=== PATIENT | female | born 1955 | race Hispanic/Latino ===

== ENCOUNTER 2016-11-29 10:59 | Emergency (ER) | payer SELFPAY ==
[2016-11-29 11:21] VITALS: BP 163/79
[2016-11-29] MEDS ORDERED: EAR WAX DROPS AU ONE (11:29)
--- NOTE | 2016-11-29 11:31 | Emergency Department Report ---
Chief Complaint: Earache Stated Complaint: EAR INPACKED Time Seen by Provider: 11/29/16 11:28 - HPI History of Present Illness: PT c/o L ear feeling clogged x 5 months - ROS Review of Systems: + left ear clogged and painful - Exam Vital Signs: Vital Signs 11/29/16 11:18 Temperature 97.7 F Pulse Rate 63 Respiratory 16 Rate Blood Pressure 163/79 O2 Sat by Pulse 98 Oximetry Physical Exam: cerumen in L ear canal MSE screening note: Focused history and physical exam performed. Due to findings the following was ordered: meds ED Disposition for MSE Condition: Stable
--- NOTE | 2016-11-29 13:03 | Emergency Department Report ---
ED ENT HPI - General Chief complaint: Earache Stated complaint: EAR INPACKED Time Seen by Provider: 11/29/16 11:28 Source: patient Mode of arrival: Ambulatory Limitations: No Limitations - History of Present Illness Initial comments: Patient reports left clogged ear that started two weeks ago complaint: ear pain (left) Onset/Timin -: week(s) Location: L ear Severity: moderate Quality: aching Consistency: constant Improves with: none Worsens with: swallowing, eating Context-Epistaxis: other (none) Context- Dental: other (none) Context- Ear: other (none) Associated Symptoms: denies: fever, cough, gum swelling, toothache, pain with swallowing, sore throat, tinnitus, hearing loss, discharge from ear, rhinorrhea - Related Data Allergies Allergy/AdvReac Type Severity Reaction Status Date / Time No Known Allergies Allergy Verified 11/29/16 11:30 ED Dental HPI - General Chief complaint: Earache Stated complaint: EAR INPACKED Time Seen by Provider: 11/29/16 11:28 Source: patient Mode of arrival: Ambulatory Limitations: No Limitations - Related Data Allergies Allergy/AdvReac Type Severity Reaction Status Date / Time No Known Allergies Allergy Verified 11/29/16 11:30 ED Review of Systems ROS: Stated complaint: EAR INPACKED Other details as noted in HPI Constitutional: denies: chills, diaphoresis, fever, malaise, weakness ENT: ear pain (left). denies: throat pain, dental pain, hearing loss, epistaxis , congestion Respiratory: denies: cough, orthopnea, shortness of breath, SOB with exertion, SOB at rest, stridor, wheezing Cardiovascular: denies: chest pain, palpitations, dyspnea on exertion, orthopnea , edema, syncope, paroxysmal nocturnal dyspnea Musculoskeletal: denies: back pain, joint swelling, arthralgia Skin: denies: rash, lesions Neurological: denies: headache, weakness, numbness, paresthesias, confusion ED Past Medical Hx - Past Medical History Additional medical history: HYPOTHYROID - Surgical History Past Surgical History?: No - Social History Smoking Status: Never Smoker Substance Use Type: Alcohol ED Physical Exam - General Limitations: No Limitations General appearance: alert, in no apparent distress - Head Head exam: Present: atraumatic, normocephalic, normal inspection - Eye Eye exam: Present: normal appearance, PERRL, EOMI Pupils: Present: normal accommodation - ENT ENT exam: Present: normal orophraynx, mucous membranes moist, normal external ear exam. Absent: mucous membranes dry - Expanded ENT Exam Expanded Ear exam: Present: normal external inspection. Absent: auricular hematoma, auricular trauma TM/Canal exam: Cerumen Impaction: Left TM Mouth exam: Present: normal external inspection, tongue normal. Absent: drooling, trismus, muffled voice, tongue elevation, laceration Teeth exam: Present: normal inspection Throat exam: Positive: normal inspection. Negative: tonsillar erythema, tonsillomegaly, tonsillar exudate, R peritonsillar mass, L peritonsillar mass - Neck Neck exam: Present: normal inspection, full ROM. Absent: tenderness, meningismus - Respiratory Respiratory exam: Present: normal lung sounds bilaterally. Absent: respiratory distress, wheezes, rales, stridor - Cardiovascular Cardiovascular Exam: Present: regular rate, normal rhythm, normal heart sounds. Absent: diastolic murmur, rubs, gallop - Neurological Exam Neurological exam: Present: alert, oriented X3, CN II-XII intact, normal gait, reflexes normal. Absent: motor sensory deficit ED Course Vital Signs 11/29/16 11:18 Temperature 97.7 F Pulse Rate 63 Respiratory 16 Rate Blood Pressure 163/79 O2 Sat by Pulse 98 Oximetry ED Medical Decision Making - Lab Data Vital Signs 11/29/16 11:18 Temperature 97.7 F Pulse Rate 63 Respiratory 16 Rate Blood Pressure 163/79 O2 Sat by Pulse 98 Oximetry - Medical Decision Making During the course of ED, ear wax softener and irrigation were ordered. Patient reports resolution of left ear pain after irrigation. She was instructed to follow up with the selective referral given at discharge, she verbalized understanding - Differential Diagnosis Left Cerumen Impaction, Left Otitis Externa Critical care attestation.: If time is entered above; I have spent that time in minutes in the direct care of this critically ill patient, excluding procedure time. ED Disposition Clinical Impression: Impacted cerumen, left ear Disposition: - TO HOME OR SELFCARE Is pt being admited?: No Does the pt Need Aspirin: No Condition: Stable Instructions: Cerumen Impaction (ED) Referrals: PRIMARY CARE, [Primary Care Provider] - 3-5 Days Time of Disposition: 13:35
== END 2016-11-29 13:45 | disposition home or self-care (01) ==
LOC: ED 10:59
DX: H61.22 Impacted cerumen, left ear (principal); E03.9 Hypothyroidism, unspecified
CPT/HCPCS: 99283

== ENCOUNTER 2016-12-29 11:48 | Inpatient (IN) | payer OTHER ==
[2016-12-29] MEDS ORDERED: MORPHINE IM ONE (12:59)
[2016-12-29] MEDS ORDERED: ZOFRAN IM ONE (12:59)
--- NOTE | 2016-12-29 13:26 | XRay Report ---
Left ankle 2 views: History: Fracture. Findings: No bony or articular abnormality. No fracture or dislocation. Suspected soft tissue swelling lateral malleolus. Impression: No evidence of acute fracture.
--- NOTE | 2016-12-29 13:28 | XRay Report ---
Right and 2 views: Findings: [id number] arthritic changes noted in the interphalangeal joints second third fourth and fifth finger. Mild arthritic changes first carpometacarpal joint and interphalangeal joint. No evidence of acute fracture. Impression: No evidence of acute fracture. Incidentally noted fracture Colle's distal radius.
--- NOTE | 2016-12-29 13:30 | XRay Report ---
Right wrist 3 views: History: Fall. Findings: Fracture noted at distal radius approximate 2.5 cm proximal to the articular margin of radius. Dorsal displacement of distal fragment. Fracture is also noted of styloid process ulna. . Impression: Findings as detailed above
--- NOTE | 2016-12-29 13:51 | Emergency Department Report ---
ED Fall HPI - General Chief Complaint: Fall Stated Complaint: FALL , RIGHT ARM POSSIBLE BROKEN, LEFT ANKLE SWOLL Time Seen by Provider: 12/29/16 12:56 Source: patient Mode of arrival: Ambulatory - History of Present Illness Initial Comments: Pt presents to ED with c/o injury to her right hand and wrist. This happened yesterday. Pt denies LOC. pT ALSO RECALLS TWISTING HER LEFT ANKLE. nO loc, PT DENIES HEAD INJURY. Pt has obvious deformity , rt wrist and hand MD Complaint: fall -: Sudden, unknown (yesterday) Fall From: standing Fall Witnessed: no Place Fall Occurred: home Loss of Consciousness: none Location: other (right wrist and hand, sprained left ankle) Location - Extremities: Left: Ankle (swelling and tenderness, left ankle), Right : Hand (obvious deformity rt wrist and hand) Severity: severe Severity scale (0 -10): 10 Quality: sharp, stabbing Context: tripped/slipped Associated Symptoms: unable to walk (pain in her left ankle). denies: headache , shortness of breath, abdominal pain, hematuria - Related Data Allergies Allergy/AdvReac Type Severity Reaction Status Date / Time No Known Allergies Allergy Verified 11/29/16 11:30 ED Review of Systems ROS: Stated complaint: FALL , RIGHT ARM POSSIBLE BROKEN, LEFT ANKLE SWOLL Other details as noted in HPI Comment: All other systems reviewed and negative Constitutional: denies: chills, diaphoresis, fever, malaise Eyes: denies: eye pain, eye discharge, vision change ENT: denies: ear pain, throat pain, dental pain, hearing loss Respiratory: denies: cough, shortness of breath, SOB with exertion, SOB at rest Cardiovascular: denies: chest pain, palpitations, dyspnea on exertion, orthopnea , edema, syncope Endocrine: denies: excessive sweating, flushing, intolerance to cold, intolerance to heat, increased hunger, increased thirst, increased urine Gastrointestinal: denies: abdominal pain, nausea, vomiting, diarrhea, constipation, hematemesis Genitourinary: denies: urgency, dysuria, frequency, hematuria Musculoskeletal: joint swelling (rt wrist joint swelling, left ankle joint swelling), other (obvious deformity , rt wrist and hand) Skin: denies: change in color, change in hair/nails, pruritus Neurological: denies: numbness, paresthesias, confusion ED Past Medical Hx - Past Medical History Previous Medical History?: No Additional medical history: HYPOTHYROID - Social History Smoking Status: Current Every Day Smoker ED Physical Exam - General Limitations: No Limitations General appearance: alert, in distress (moderate) - Head Head exam: Present: atraumatic, normocephalic, normal inspection - Eye Eye exam: Present: normal appearance, PERRL, EOMI. Absent: scleral icterus, conjunctival injection, nystagmus - ENT ENT exam: Present: normal exam, normal orophraynx, mucous membranes moist - Neck Neck exam: Present: normal inspection, tenderness, full ROM. Absent: meningismus, lymphadenopathy, thyromegaly - Respiratory Respiratory exam: Present: normal lung sounds bilaterally. Absent: respiratory distress, wheezes, rales, rhonchi, chest wall tenderness, accessory muscle use, decreased breath sounds - Cardiovascular Cardiovascular Exam: Present: regular rate, normal rhythm, normal heart sounds. Absent: bradycardia, tachycardia, diastolic murmur, rubs - GI/Abdominal GI/Abdominal exam: Present: soft, normal bowel sounds. Absent: distended, guarding, rebound, hyperactive bowel sounds, hypoactive bowel sounds, organomegaly, pulsatile mass - Rectal Rectal exam: Present: deferred - Expanded Upper Extremity Exam Right Shoulder Exam: Present: normal inspection, full ROM. Absent: tenderness, swelling, abrasion, deformity, crepidus Upper Arm exam: Present: normal inspection, full ROM. Absent: tenderness, abrasion, laceration, ecchymosis Elbow exam: Present: normal inspection, full ROM. Absent: abrasion, laceration , ecchymosis, deformity Forearm Wrist exam: Present: tenderness (distal aspect), swelling, deformity ( distal forearm) Hand Wrist exam: Present: tenderness, swelling, ecchymosis, deformity, erythema - Expanded Lower Extremity Exam Left Hip exam: Present: normal inspection, full ROM. Absent: tenderness, swelling, abrasion, laceration, ecchymosis, deformity, crepidus Upper Leg exam: Present: normal inspection, full ROM Knee exam: Present: normal inspection, full ROM. Absent: tenderness, swelling, abrasion, laceration, ecchymosis, deformity, erythema, effusion Lower Leg exam: Present: normal inspection, full ROM. Absent: tenderness, swelling, abrasion, laceration, ecchymosis, deformity, crepidus Ankle exam: Present: tenderness, swelling. Absent: full ROM, abrasion, laceration, ecchymosis, deformity, crepidus, dislocation, erythema - Back Exam Back exam: Present: normal inspection, full ROM. Absent: tenderness, CVA tenderness (R), CVA tenderness (L), muscle spasm, paraspinal tenderness - Neurological Exam Neurological exam: Present: alert, oriented X3, CN II-XII intact ED Course Vital Signs 12/29/16 12/29/16 11:57 13:32 Temperature 97.8 F Pulse Rate 70 Respiratory 18 20 Rate Blood Pressure 115/65 Blood Pressure 115/65 [Right] O2 Sat by Pulse 99 Oximetry - Consultations Consultation #1: 12/29/16 16:05 D/w Dr Jay, he advised I admit pt to hospitalist service, he would consult on pt Consultation #2: 12/29/16 16:07 I d/w hospitalist, he accepts pt's admission Critical Care Time: No Critical care attestation.: If time is entered above; I have spent that time in minutes in the direct care of this critically ill patient, excluding procedure time. ED Disposition Clinical Impression: Colles' fracture of right radius, initial encounter for closed fracture, Fracture of distal end of radius and ulna Disposition: OP ADMIT IP TO THIS HOSP Is pt being admited?: Yes Does the pt Need Aspirin: No Condition: Stable
[2016-12-29] MEDS ORDERED: MORPHINE IV ONE (16:17)
[2016-12-29] MEDS ORDERED: MILK OF MAGNESIA PO PRN (16:29)
[2016-12-29] MEDS ORDERED: TYLENOL PO PRN (16:29)
[2016-12-29] MEDS ORDERED: PROVENTIL IH PRN (16:29)
[2016-12-29] MEDS ORDERED: DULCOLAX PR PRN (16:29)
[2016-12-29] MEDS ORDERED: ZOFRAN IV PRN (16:29)
[2016-12-29] MEDS ORDERED: NACL 0.45% 1000 ML 1,000 ML IV SCH (17:00)
[2016-12-29 17:06] LABS: Basophils % (Auto) 0.8 % (0.0-1.8); Eosinophils % (Auto) 0.3 % (0.0-4.3); Hematocrit 38.1 % (30.3-42.9); Hemoglobin 12.7 gm/dl (10.1-14.3); Mean Corpuscular HGB Conc 33 % (30-34); Mean Corpuscular Hemoglobin 30 pg (28-32); Mean Corpuscular Volume 91 fl (79-97); Platelet Count 233 K/mm3 (140-440); Red Blood Count 4.18 M/mm3 (3.65-5.03); Red Cell Distribution Width 14.3 % (13.2-15.2); White Blood Count 9.6 K/mm3 (4.5-11.0)
[2016-12-29 17:19] LABS: INR 1.04 (0.87-1.13)
[2016-12-29 17:26] LABS: Alanine Aminotransferase 13 units/L (7-56); Albumin 4.2 g/dL (3.9-5); Albumin/Globulin Ratio 1.3 %; Alkaline Phosphatase 79 units/L (35-129); Anion Gap 19 mmol/L; BUN/Creatinine Ratio 16.25; Blood Urea Nitrogen 13 mg/dL (7-17); Calcium 9.1 mg/dL (8.4-10.2); Carbon Dioxide 22 mmol/L (22-30); Glucose 87 mg/dL (65-100); Partial Thromboplastin Time 178.2 Sec. (24.2-36.6); Potassium 4.1 mmol/L (3.6-5.0); Sodium 141 mmol/L (137-145); Total Protein 7.4 g/dL (6.3-8.2)
--- NOTE | 2016-12-29 19:17 | History and Physical Report ---
History of Present Illness Date of admission: 12/29/16 16:29 Chief complaint: I hurt my wrist History of present illness: 61 YO Female with Nicotine Dependence, Hypothyroidism presents to ED for evaluation. Pt states that fell down yesterday landing on her wrist. Pt states that she has pain in her right wrist. Pt denies fever, chills, CP, palpitations , syncope, skin rashes, or recent ill contacts. Pt seen and evaluated in ED and found to have R wrist fractures. Ortho surgery consulted, in ED. Pt to go to OR in am for surgical intervention. Past History Past Medical History: hypothyroidism, other (nicotine dependence) Past Surgical History: No surgical history, Other (reviewed) Social history: , smoking. denies: alcohol abuse, prescription drug abuse, IV drug use Family history: hypertension Medications and Allergies Allergies Allergy/AdvReac Type Severity Reaction Status Date / Time No Known Allergies Allergy Verified 11/29/16 11:30 Home Medications Medication Instructions Recorded Confirmed Last Taken Type No Known Home Medications [No 12/29/16 12/29/16 Unknown History Reported Home Medications] Active Meds: Active Medications Acetaminophen (Tylenol) 650 mg PO Q4H PRN PRN Reason: Pain MILD(1-3)/Fever >100.5/WOLFF Albuterol (Proventil) 2.5 mg IH Q4HRT PRN PRN Reason: Shortness Of Breath Bisacodyl (Dulcolax) 10 mg AL QDAY PRN PRN Reason: Constipation unrelieved by MOM Sodium Chloride (Nacl 0.45% 1000 Ml) 1,000 mls @ 125 mls/hr IV DIRECT DONYA Magnesium Hydroxide (Milk Of Magnesia) 30 ml PO Q4H PRN PRN Reason: Constipation Morphine Sulfate (Morphine) 2 mg IV Q4H PRN PRN Reason: Pain, Moderate (4-6) Ondansetron HCl (Zofran) 4 mg IV Q8H PRN PRN Reason: N/V unrelieved by Reglan Oxycodone/Acetaminophen (Percocet 5/325) 1 tab PO Q6H PRN PRN Reason: Pain, Moderate (4-6) Review of Systems Constitutional: other (wrist pain), no weight loss, no weight gain, no fever, no chills, no sweats Ears, nose, mouth and throat: no ear pain, no ear discharge, no tinnitis, no decreased hearing, no nose pain, no nasal congestion, no nasal discharge Breasts: no change in shape, no swelling, no mass Cardiovascular: no chest pain, no orthopnea, no palpitations, no rapid/ irregular heart beat, no edema, no syncope, no lightheadedness Respiratory: no cough, no cough with sputum, no excessive sputum, no hemoptysis , no shortness of breath, no dyspnea on exertion Gastrointestinal: no abdominal pain, no nausea, no vomiting, no diarrhea, no constipation, no change in bowel habits Genitourinary Female: no pelvic pain, no flank pain, no menorrhagia, no dysuria Rectal: no pain, no incontinence, no bleeding Musculoskeletal: no neck stiffness, no neck pain, no shooting arm pain, no arm numbness/tingling, no low back pain, no shooting leg pain, no leg numbness/ tingling, no redness of joints Integumentary: no rash, no pruritis, no redness, no sores, no wounds Neurological: no head injury, no transient paralysis, no paralysis, no weakness , no parathesias, no numbness, no tingling Psychiatric: no anxiety, no memory loss, no change in sleep habits, no sleep disturbances, no insomnia, no hypersomnia, no change in appetite Endocrine: no cold intolerance, no heat intolerance, no polyphagia, no excessive thirst, no polydipsia, no polyuria Hematologic/Lymphatic: no easy bruising, no easy bleeding Allergic/Immunologic: no urticaria, no allergic rhinitis, no wheezing Exam - Constitutional Vitals: Temp Pulse Resp BP Pulse Ox 98.4 F 56 L 18 129/69 94 12/29/16 18:47 12/29/16 18:47 12/29/16 18:47 12/29/16 18:47 12/29/16 18:47 General appearance: Present: mild distress, well-nourished - EENT Eyes: Present: PERRL ENT: hearing intact, clear oral mucosa - Neck Neck: Present: supple, normal ROM - Respiratory Respiratory effort: normal Respiratory: bilateral: CTA - Cardiovascular Heart Sounds: Present: S1 & S2. Absent: rub, click - Extremities Extremities: pulses symmetrical, No edema, abnormal (right wrist swelling, deformity) Peripheral Pulses: within normal limits - Abdominal General gastrointestinal: Present: soft, non-tender, non-distended, normal bowel sounds Female genitourinary: Present: normal - Integumentary Integumentary: Present: clear, warm, dry - Musculoskeletal Musculoskeletal: gait normal, strength equal bilaterally - Psychiatric Psychiatric: appropriate mood/affect, intact judgment & insight - Neurologic Neurologic: CNII-XII intact, moves all extremities Results - Labs CBC & Chem 7: 12/29/16 Unknown 12/29/16 Unknown Labs: Abnormal lab results 12/29/16 12/29/16 Range/Units Unknown Unknown Seg Neutrophils % 79.7 H (40.0-70.0) % APTT 178.2 H* (24.2-36.6) Sec. Assessment and Plan - Patient Problems (1) Fracture of distal end of radius and ulna Current Visit: Yes Status: Acute Qualifiers: Encounter type: E Fracture type: F Open fracture type: O Laterality: L Fracture healing: F Plan to address problem: Ortho surgery consulted, Pt to OR in AM. (2) Colles' fracture of right radius, initial encounter for closed fracture Current Visit: Yes Status: Acute Plan to address problem: Pt to OR in AM. (3) Nicotine dependence Current Visit: Yes Status: Acute Qualifiers: Nicotine product type: N Substance use status: S Plan to address problem: Pt counseled, pt refused to pick quit date (4) Hypothyroid Current Visit: Yes Status: Acute Qualifiers: Hypothyroidism type: H Plan to address problem: continue current therapy, (5) DVT prophylaxis Current Visit: Yes Status: Acute
[2016-12-29] MEDS: PERCOCET 5/325 PO PRN (19:45)
[2016-12-29] MEDS: MORPHINE IV PRN (23:28)
[2016-12-30] MEDS: MORPHINE IV PRN ×5 (04:03→23:17)
--- NOTE | 2016-12-30 09:24 | Anesthesia Day of Surgery ---
Anesthesia Day of Surgery - Day of Surgery Patient Examined: Yes Patient H&P Reviewed: Yes Patient is NPO: Yes
--- NOTE | 2016-12-30 09:24 | Anesthesia Consultation ---
Anesthesia Consult and Med Hx Date of service: 12/30/16 - Airway Anesthetic Teeth Evaluation: Dentures ROM Head & Neck: Adequate Mental/Hyoid Distance: Adequate Mallampati Class: Class II Intubation Access Assessment: Good - Pulmonary Exam CTA: Yes - Cardiac Exam Cardiac Exam: RRR - Pre-Operative Health Status ASA Pre-Surgery Classification: ASA2 Proposed Anesthetic Plan: General - Pulmonary Hx Smoking: Yes Hx Asthma: No Hx Pneumonia: No Hx Sleep Apnea: No - Cardiovascular System Hx Valvular Heart Disease: No - Central Nervous System Hx Psychiatric Problems: No - Endocrine Hx End Stage Renal Disease: No Hx Thyroid Disease: Yes (previously hyperthyroid, S/P thyroidectomy) Hx Hypothyroidism: Yes (has not taken synthroid in months due to lack of insurance) - Other Systems Hx Cancer: No
[2016-12-30] MEDS ORDERED: ANCEF/STERILE WATER 2 GM/20 ML IV NR (10:00)
[2016-12-30 10:04] LABS: INR 0.94 (0.87-1.13)
[2016-12-30 10:05] LABS: Partial Thromboplastin Time 30.7 Sec. (24.2-36.6)
[2016-12-30] MEDS ORDERED: DIPRIVAN 10 MG/ML IV ONE (10:13)
[2016-12-30] MEDS ORDERED: NACL 0.9% 1000 ML 1,000 ML ONE (10:13)
[2016-12-30] MEDS ORDERED: SUBLIMAZE ONE (10:13)
[2016-12-30] MEDS ORDERED: XYLOCAINE MPF 2% ONE (10:13)
[2016-12-30] MEDS ORDERED: NEOSPORIN GU IR ONE ×2 (10:30→11:08)
[2016-12-30] MEDS ORDERED: MARCAINE-EPI/PF 0.5%-1:200,000 INFILTRATI ONE (10:30)
[2016-12-30] MEDS ORDERED: NACL 0.9% IR ONE (11:08)
[2016-12-30] MEDS ORDERED: MARCAINE 0.5% INFILTRATI ONE (11:45)
[2016-12-30] MEDS ORDERED: ZOFRAN ONE (11:56)
[2016-12-30] MEDS ORDERED: DECADRON ONE (11:56)
[2016-12-30] MEDS ORDERED: NACL 0.9% 1000 ML 1,000 ML IV SCH (12:00)
[2016-12-30] MEDS ORDERED: DEMEROL ONE (12:12)
--- NOTE | 2016-12-30 12:17 | Post Anesthesia Evaluation ---
- Post Anesthesia Evaluation Patient Participated: Yes Airway Patent: Yes Stable Respiratory Function: Yes Nausea/Vomiting: No Temp > 96.8F: Yes Pain Manageable: Yes Adequeate Hydration: Yes Anesthesia Complications: No Block Receding Appropriately: Not Applicable Patient on Ventilator: No
--- NOTE | 2016-12-30 17:12 | XRay Report ---
RIGHT WRIST, 2 VIEWS History: Pain, fracture, intraoperative films. Findings: Frontal and lateral fluoroscopic images of the right wrist were obtained during surgery. Internal fixation of distal radial fracture with metal plate and screws is evident. Alignment is near-anatomic. Ulnar styloid fracture is also noted. The carpal bones are normal in relationship. Impression: Internal fixation of the distal radial fracture.
[2016-12-30] MEDS: PERCOCET 5/325 PO PRN (18:31)
--- NOTE | 2016-12-30 19:05 | Progress Note ---
Assessment and Plan Assessment and plan: 1. Right Colle's fracture distal radius S/p ORIF today; ortho following Pain control medications, supportive care PT/OT when ortho recommends 2. Hypothyroidism Continue Synthroid 3. Nicotine dependence Nicotine patch Counseled regarding importance of quitting 4. DVT prophylaxis History Interval history: s/p ortho intervention c/o right arm pain Hospitalist Physical - Constitutional Vitals: Temp Pulse Resp BP Pulse Ox 98.7 F 54 L 18 137/83 96 12/30/16 16:00 12/30/16 16:00 12/30/16 16:00 12/30/16 16:00 12/30/16 13:00 General appearance: Present: no acute distress - EENT Eyes: Present: PERRL, EOM intact. Absent: scleral icterus, conjunctival injection - Neck Neck: Present: supple, normal ROM. Absent: masses or JVD - Respiratory Respiratory effort: normal Respiratory: bilateral: CTA, negative: rhonchi, wheezing - Cardiovascular Rhythm: regular Heart Sounds: Present: S1 & S2. Absent: systolic murmur - Extremities Extremities: no ischemia, abnormal (R arm dressing in place) - Abdominal General gastrointestinal: soft, non-tender, non-distended, normal bowel sounds - Integumentary Integumentary: Present: warm, dry. Absent: jaundice, rash - Psychiatric Psychiatric: cooperative - Neurologic Neurologic: CNII-XII intact, no focal deficits Results - Labs CBC & Chem 7: 12/29/16 Unknown 12/29/16 Unknown Labs: Laboratory Last Values WBC 9.6 K/mm3 (4.5-11.0) 12/29/16 Unknown RBC 4.18 M/mm3 (3.65-5.03) 12/29/16 Unknown Hgb 12.7 gm/dl (10.1-14.3) 12/29/16 Unknown Hct 38.1 % (30.3-42.9) 12/29/16 Unknown MCV 91 fl (79-97) 12/29/16 Unknown MCH 30 pg (28-32) 12/29/16 Unknown MCHC 33 % (30-34) 12/29/16 Unknown RDW 14.3 % (13.2-15.2) 12/29/16 Unknown Plt Count 233 K/mm3 (140-440) 12/29/16 Unknown Lymph % (Auto) 14.2 % (13.4-35.0) 12/29/16 Unknown Butts % (Auto) 5.0 % (0.0-7.3) 12/29/16 Unknown Eos % (Auto) 0.3 % (0.0-4.3) 12/29/16 Unknown Baso % (Auto) 0.8 % (0.0-1.8) 12/29/16 Unknown Lymph # 1.4 K/mm3 (1.2-5.4) 12/29/16 Unknown Butts # 0.5 K/mm3 (0.0-0.8) 12/29/16 Unknown Eos # 0.0 K/mm3 (0.0-0.4) 12/29/16 Unknown Baso # 0.1 K/mm3 (0.0-0.1) 12/29/16 Unknown Seg Neutrophils % 79.7 % (40.0-70.0) H 12/29/16 Unknown Seg Neutrophils # 7.7 K/mm3 (1.8-7.7) 12/29/16 Unknown PT 13.0 Sec. (12.2-14.9) 12/30/16 09:41 INR 0.94 (0.87-1.13) 12/30/16 09:41 APTT 30.7 Sec. (24.2-36.6) 12/30/16 09:41 Sodium 141 mmol/L (137-145) 12/29/16 Unknown Potassium 4.1 mmol/L (3.6-5.0) 12/29/16 Unknown Chloride 104.0 mmol/L (98-107) 12/29/16 Unknown Carbon Dioxide 22 mmol/L (22-30) 12/29/16 Unknown Anion Gap 19 mmol/L 12/29/16 Unknown BUN 13 mg/dL (7-17) 12/29/16 Unknown Creatinine 0.8 mg/dL (0.7-1.2) 12/29/16 Unknown Estimated GFR > 60 ml/min 12/29/16 Unknown BUN/Creatinine Ratio 16.25 % 12/29/16 Unknown Glucose 87 mg/dL (65-100) 12/29/16 Unknown Calcium 9.1 mg/dL (8.4-10.2) 12/29/16 Unknown Magnesium 2.20 mg/dL (1.7-2.3) 12/29/16 Unknown Total Bilirubin 0.70 mg/dL (0.1-1.2) 12/29/16 Unknown AST 19 units/L (5-40) 12/29/16 Unknown ALT 13 units/L (7-56) 12/29/16 Unknown Alkaline Phosphatase 79 units/L (35-129) 12/29/16 Unknown Total Protein 7.4 g/dL (6.3-8.2) 12/29/16 Unknown Albumin 4.2 g/dL (3.9-5) 12/29/16 Unknown Albumin/Globulin Ratio 1.3 % 12/29/16 Unknown
--- NOTE | 2016-12-30 21:39 | Procedure Note ---
Date of procedure: 12/30/16 Pre-op diagnosis: Comminuted displaced right distal radius fracture Post-op diagnosis: same Procedure: Procedure Open reduction internal fixation right distal radius Indications 61 y/o female with a comminuted displaced right distal radius fracture from a slip and fall injury at home Procedure The patient was brought to the OR placed on the OR table in supine position following induction and intubation by anesthesia the patient's right upper extremity was prepped and draped in the usual sterile manner. A timeout procedure was done to identify the patient and the correct operative site. The arm was exsanguinated followed by inflation of the pneumatic tourniquet to 250 mmHg. A volar incision was made centered over the distal radius this was taken down sharply to skin and subcutaneous the tendon of the flexor incision was carried deep towards the quadratus muscle tendon this was released off of the distal radius was identified and using gentle manipulation the fracture fragments were reduced into a more anatomic position and held in place by way of a smooth K wire. A short distal radius locking plate was applied to the volar surface and secured bilaterally of multiple locking and nonlocking screws C-arm fluoroscopy was used to visualize placement of hardware AP and lateral views were obtained and showed good reduction at the fracture and placement of the hardware this was taken through a range of motion and found to be stable next the wound was copiously irrigated with saline solution this is followed by closure of the skin and soft tissue structures 1% Marcaine was injected for postop pain management. A well-padded volar splint was applied the patient was extubated and was taken to postanesthesia recovery in stable condition Anesthesia: JAM Surgeon: DANIEL PARRA Estimated blood loss: minimal Pathology: none Condition: stable Disposition: PACU
[2016-12-31] MEDS: MORPHINE IV PRN ×2 (04:53→09:20)
[2016-12-31] MEDS: PERCOCET 5/325 PO PRN (06:51)
[2016-12-31 08:12] VITALS: BP 144/67
--- NOTE | 2016-12-31 16:09 | Discharge Summary ---
Providers - Providers Date of Admission: 12/29/16 16:29 Date of discharge: 12/31/16 Attending physician: CRISSY COELLO 12/31/16 15:40 Occupational Therapy Evaluate and Treat [CONS] Routine Comment: Reason For Exam: R wrist fracture Physical Therapy Evaluation and Treat [CONS] Routine Comment: Reason For Exam: R wrist fracture Primary care physician: COMPOSITION INSTRUCTOR Hospitalization Condition: Stable Disposition: DC-01 TO HOME OR SELFCARE Time spent for discharge: 35 min Exam - Constitutional Vitals: Temp Pulse Resp BP Pulse Ox 98.5 F 57 L 16 144/67 96 12/31/16 07:04 12/31/16 07:04 12/31/16 07:04 12/31/16 07:04 12/31/16 07:43 Plan Activity: advance as tolerated, fall precautions Diet: regular Follow up with: PRIMARY CARE,MD [Primary Care Provider] - 3-5 Days Prescriptions: oxyCODONE /ACETAMINOPHEN [Percocet 5/325 mg] 1 tab PO Q6H PRN #20 tablet PRN Reason: Pain, Moderate (4-6)
== END 2016-12-31 18:50 | disposition home or self-care (01) | DRG 512 ==
LOC: ED 11:48 → 3B-SURG 16:29
PROVIDERS: ADMIT Internal Medicine; ATTEND Internal Medicine
PROC: 0PSH04Z Reposition Right Radius with Internal Fixation Device, Open Approach (ICD-10-PCS; principal; 2016-12-30)
DX: S52.531A Colles' fracture of right radius, initial encounter for closed fracture (principal); E03.9 Hypothyroidism, unspecified; F17.210 Nicotine dependence, cigarettes, uncomplicated; Z82.49 Family history of ischemic heart disease and other diseases of the circulatory system; W01.0XXA Fall on same level from slipping, tripping and stumbling without subsequent striking against object, initial encounter; Y93.89 Activity, other specified; Y92.098 Other place in other non-institutional residence as the place of occurrence of the external cause; Y99.8 Other external cause status
CPT/HCPCS: 36415; 80053; 83735; 85025; 85610; 85730; 93005; 93010; 96372; 96374; J0690; J1100; J2175; J2270; J2405; J2704; J3010; J7030; L8699

== ENCOUNTER 2019-02-14 16:20 | Emergency (ER) | payer SELFPAY ==
--- NOTE | 2019-02-14 16:36 | Emergency Department Report ---
ED Neuro Deficit HPI - General Stated Complaint: POSS CVA Time Seen by Provider: 02/14/19 16:32 - History of Present Illness Initial Comments: Patient is a 63-year-old female in no snake and past medical history who is presenting with left-sided facial droop. Patient states he woke up this morning feeling fine. She noted that she was having a difficult time drinking soup this afternoon around 12. Patient's family also stated that she sounded strange on the phone. Patient states she is unable to close her left eye. Patient denies any arm or leg weakness or numbness. Patient states that her left eye feels dry and is watering. - Related Data Home Medications: Previous Rx's Medication Instructions Recorded Last Taken Type oxyCODONE /ACETAMINOPHEN [Percocet 1 tab PO Q6H PRN #20 tablet 12/31/16 Unknown Rx 5/325 mg] Valacyclovir HCl [Valtrex] 1,000 mg PO BID 7 Days tablet 02/14/19 Unknown Rx methylPREDNISolone [Medrol 4MG 4 mg PO DAILY #1 tab.ds.pk 02/14/19 Unknown Rx DOSEPAK (21 tabs)] Allergies/Adverse Reactions: Allergies Allergy/AdvReac Type Severity Reaction Status Date / Time No Known Allergies Allergy Verified 11/29/16 11:30 ED Review of Systems ROS: Stated complaint: POSS CVA Other details as noted in HPI Comment: All other systems reviewed and negative ED Past Medical Hx - Past Medical History Hx Congestive Heart Failure: No Hx Diabetes: No Hx Asthma: No Additional medical history: HYPOTHYROID - Social History Smoking Status: Current Every Day Smoker - Medications Home Medications: Home Medications Medication Instructions Recorded Confirmed Last Taken Type oxyCODONE /ACETAMINOPHEN [Percocet 1 tab PO Q6H PRN #20 tablet 12/31/16 Unknown Rx 5/325 mg] Valacyclovir HCl [Valtrex] 1,000 mg PO BID 7 Days tablet 02/14/19 Unknown Rx methylPREDNISolone [Medrol 4MG 4 mg PO DAILY #1 tab.ds.pk 02/14/19 Unknown Rx DOSEPAK (21 tabs)] ED Neuro Physical Exam - General General appearance: alert, in no apparent distress Suspected Stroke: No - Head Head exam: Present: atraumatic, normocephalic - Eye Eye exam: Present: normal appearance - ENT ENT exam: Present: mucous membranes moist - Neck Neck exam: Present: normal inspection - Respiratory Respiratory exam: Present: normal lung sounds bilaterally. Absent: respiratory distress - Cardiovascular Cardiovascular Exam: Present: regular rate, normal rhythm, normal heart sounds. Absent: systolic murmur, diastolic murmur, rubs, gallop - GI/Abdominal GI/Abdominal exam: Present: soft, normal bowel sounds. Absent: distended, tenderness, guarding, rebound - Extremities Exam Extremities exam: Present: normal inspection - Back Exam Back exam: Present: normal inspection - Neurological Exam Neurological exam: Present: alert, oriented X3. Absent: CN II-XII intact ( almost complete seventh nerve palsy on the left which includes the forehead) - NIHSS Assessment Interval: Baseline 1a. Level of Consciousness: alert/keenly responsive 1b. LOC Questions: answers both correctly 1c. LOC Commands: performs tasks correctly 2. Best Gaze: normal 3. Visual: no visual loss 4. Facial Palsy: partial paralysis 5b. Motor Arm Right: no drift 5a. Motor Arm Left: no drift 6a. Motor Leg Left: no drift 6b. Motor Leg Right: no drift 7. Limb Ataxia: absent 8. Sensory: normal 9. Best Language: no aphasia 10. Dysarthria: normal 11. Extinction/Inattention: no abnormality Total Score: 2 Stroke Severity: Minor Stroke - Psychiatric Psychiatric exam: Present: normal affect, normal mood - Skin Skin exam: Present: warm, dry, intact, normal color. Absent: rash ED Course Vital Signs 02/14/19 16:35 Temperature 98 F Pulse Rate 62 Respiratory 16 Rate Blood Pressure 148/36 O2 Sat by Pulse 99 Oximetry - Medical Decision Making Patient has a classic appearance of David palsy. Patient be started on steroids and anti-viral patient be discharged home. Critical care attestation.: If time is entered above; I have spent that time in minutes in the direct care of this critically ill patient, excluding procedure time. ED Disposition Clinical Impression: David palsy Disposition: DC-01 TO HOME OR SELFCARE Is pt being admited?: No Does the pt Need Aspirin: No Condition: Stable Instructions: David Palsy (ED) Prescriptions: methylPREDNISolone [Medrol 4MG DOSEPAK (21 tabs)] 4 mg PO DAILY #1 tab.ds.pk Valacyclovir HCl [Valtrex] 1,000 mg PO BID 7 Days tablet Referrals: DEANNE GLYNN MD [Staff Physician] - 3-5 Days Time of Disposition: 16:35
[2019-02-14 16:40] VITALS: BP 148/36
== END 2019-02-14 21:25 | disposition home or self-care (01) ==
LOC: ED 16:20
DX: G51.0 Bell's palsy (principal); F17.200 Nicotine dependence, unspecified, uncomplicated
CPT/HCPCS: 99283